=== PATIENT | male | born 1965 | race Caucasian/White ===

== ENCOUNTER → 2016-07-15 | Outpatient (CLI) | payer OTHER ==
--- NOTE | 2016-07-15 14:47 | DIAGNOSTIC IMAGING REPORT ---
PROCEDURE: XR CHEST 2 VIEW INDICATION: PRE OP HBOT, SNHL TECHNIQUE: Two views. COMPARISON: None. FINDINGS: The cardiomediastinal contour and central vasculature are within normal limits. Median sternotomy wires are present. The lungs are clear without focal consolidation, pleural effusion, or pneumothorax. The visualized osseous structures demonstrate bilateral distal clavicular resections. IMPRESSION: 1. No acute process. 2. Prior median sternotomy.
--- NOTE | 2016-07-16 08:26 | WOUND CARE HB CONSULT ---
DATE OF SERVICE: 07/16/2016 CONSULTING PHYSICIAN/PROVIDER: Estevan Hines MD CHIEF COMPLAINT: 1. Acute sensorineural hearing loss HISTORY OF PRESENT ILLNESS: The patient is a 50-year-old man who developed left ear hearing loss within the last 2 weeks. He had some form of infection within his inner ear and developed high-frequency hearing loss. The patient was evaluated at the [facility] ENT department. He had a PE tube placed on the left side, but audiology advises that he has high-frequency loss on an acute basis and recommended that he undergo hyperbaric oxygen therapy. MEDICAL/SURGICAL HISTORY: Past medical history is unremarkable. Past surgeries: None. MEDICATIONS: 1. Prednisone 60 mg every day. Note, the patient has completed 1 week and is now starting a taper, to complete treatment within 2 weeks. ALLERGIES: 1. NONE TO MEDICATIONS. 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 He is . He takes occasional alcohol, does not smoke cigarettes. FAMILY HISTORY: Parents are alive and well. He reports no congenital diseases. REVIEW OF SYSTEMS: The patient reports that he is completely fit. He denies any other symptoms, other than the ENT symptoms. When he tries to clear his ears, the air rushes out the left PE tube. He reports no gastrointestinal disturbance, no shortness of breath, palpitations, cardiovascular symptoms. He has not had any history of COPD or bullous emphysema. There are no acute neurologic problems. He has no genitourinary problems or GI problems. PHYSICAL EXAMINATION: GENERAL: On examination, the patient is fit, alive and well. He is alert and cooperative. His mental status is normal. He provides appropriate answers and he is oriented to place and person. HEENT: His ears and nose exam revealed both ear drums to have a T-score of 0, without any alterations. There is a small blue tympanostomy tube seen on the left side. Eyes demonstrate no icterus. His pupils are equal. NECK: Without palpable masses or thyromegaly. There are no bruits in the carotids. CHEST: His chest is auscultated and is clear, with full breath sounds on both sides. HEART: Regular, without murmurs or gallop. ABDOMEN: Reveals no localized tenderness, organomegaly, or ascites. EXTREMITIES: Symmetric. The patient ambulates normally. NEUROLOGIC: The patient has normal neurologic function other than the previously described high frequency hearing loss on the left, which was detected with audiology. IMPRESSION: 1. Sudden sensorineural hearing loss. PLAN: I concur with the recommendations of the ENT service at [facility]. The patient will be placed on a course of hyperbaric oxygen therapy to consist of twice a day treatments of 2.5 atmospheres for 120 minutes with 2 air breaks. This will occur twice a day, 5 days a week for 2 weeks, resulting in a total of 20 treatments. He is to commence his treatments today. I talked to him about his right ear, and he will review pressure equalization with our biomedical equipment technician.
== END ==
LOC: RT SRH 14:12
DX: Z01.818 Encounter for other preprocedural examination (principal); H90.5 Unspecified sensorineural hearing loss